=== PATIENT | female | born 1975 | race African-American/Black ===

== ENCOUNTER 2017-04-02 12:50 | Emergency (ER) | payer BC ==
[~2017-04-02] VITALS: Ht 147.3 cm; Wt 99.8 kg
[2017-04-02] MEDS ORDERED: DIOVAN320 MG PO (13:35)
[2017-04-02] MEDS ORDERED: METFORMIN HCL500 MG PO (13:35)
[2017-04-02] MEDS ORDERED: AMLODIPINE BESY10 MG PO (13:35)
[2017-04-02] MEDS ORDERED: PRAVACHOL20 MG PO (13:36)
[2017-04-02] MEDS ORDERED: WELLBUTRIN 100100 MG PO (13:36)
[2017-04-02] MEDS ORDERED: ASA5UEC PO (13:36)
[2017-04-02] MEDS ORDERED: CLONIDINE HCL0.3 M3 PO (13:36)
[2017-04-02] MEDS ORDERED: VITAMIN D250000 UNIT PO (13:36)
[2017-04-02] MEDS ORDERED: AMOXICILLIN500 M1 PO (14:44)
[2017-04-02 15:12] VITALS: BP 187/113
== END 2017-04-02 15:14 | disposition home or self-care (01) ==
LOC: ER 12:50
DX: J02.0 Streptococcal pharyngitis (principal); F41.9 Anxiety disorder, unspecified